=== PATIENT | female | born 1960 | race Caucasian/White ===

== ENCOUNTER 2016-07-29 07:02 | Day surgery (SDC) | payer OTHER ==
[~2016-07-29] VITALS: Ht 170.2 cm; Wt 123.7 kg
[2016-07-29 08:12] VITALS: Ht 170.2 cm; Wt 123.7 kg
[2016-07-29] MEDS ORDERED: LEVO100T87 PO (08:32)
[2016-07-29] MEDS ORDERED: OMEP20CA16 PO (08:32)
[2016-07-29] MEDS ORDERED: LOSA100T7 PO (08:32)
[2016-07-29] MEDS ORDERED: DULA1.5P SQ (08:32)
[2016-07-29] MEDS ORDERED: PROGLITAZONE (08:32)
[2016-07-29 08:55] VITALS: BP 143/83; PULSE 79; RESP 24
[2016-07-29] MEDS ORDERED: LIDOCAINE 2% (SDV) 5 ML INJ ONE (08:55)
[2016-07-29] MEDS ORDERED: PROPOFOL 60 ML ONE (08:55)
[2016-07-29 09:59] VITALS: BP 117/52; PULSE 76; RESP 22
[2016-07-29 10:03] VITALS: BP 150/80; RESP 22
[2016-07-29 10:45] VITALS: BP 149/84; RESP 20
--- NOTE | 2016-07-30 13:01 | GILP ---
DATE OF PROCEDURE: PROCEDURE: Esophagogastroduodenoscopy. PREOPERATIVE DIAGNOSIS: Patient presenting with history of abdominal discomfort, chronic heartburn, unresponsive to routine therapy, rule out Sheriff esophagus and eosinophilic esophagitis. POSTOPERATIVE DIAGNOSES: 1. Mild reflux esophagitis, [place] classification A. 2. Diffuse patchy gastritis. 3. Fundal gastric polyp. DESCRIPTION OF PROCEDURE: After the informed written consent was obtained, the patient was asked to lie on the left lateral side. Intravenous anesthesia was given by anesthesiologist, Dr. Calvillo. Whe n the patient became somnolent, the Olympus video upper endoscope was introduced into the oropharynx , and then into the esophagus. The esophagus was examined. A few areas of erythema noted just abov e the GE junction indicating mild reflux esophagitis, [place] classification A. Biopsies were o btained to rule out Sheriff's esophagus or eosinophilic esophagitis. Scope at this time was advance d into the stomach. A few areas of erythema were noted in the antrum and the fundus of the stomach. A 3 mm flat polyp was noted in the gastric fundus. This polyp was removed. Biopsy was done from the antrum, lesser curvature and the fundus to rule out H. pylori infection. The mucosa of the duod enum up to the end of the third portion appeared normal, and no additional abnormalities detected an d the procedure was terminated. PLAN: Recommend wait for the pathology report. Dictated By: RADHA CRISOSTOMO/MATTHEW Conf#: [id number] DID#: [id number]
--- NOTE | 2016-07-30 13:01 | GILP ---
DATE OF PROCEDURE: 07/29/2016 PROCEDURE: Colonoscopy. PREOPERATIVE DIAGNOSIS: Screening colonoscopy to rule out colon polyps. POSTOPERATIVE DIAGNOSES: 1. Diverticulosis all along the colon. 2. Minimal internal and moderate external hemorrhoids. 3. No polyps noted. 4. Terminal ileum appeared normal. DESCRIPTION OF PROCEDURE: After informed written consent was obtained, the patient was asked to lie on the left lateral side. Intravenous anesthesia was given by anesthesiologist, Dr. Calvillo. When th e patient became somnolent, the Olympus video colonoscope was introduced into the rectum and scope w as advanced all the way to the cecum. Entire colon was examined. Diffuse diverticulosis was noted t hat was small in size and of a moderate degree, but no evidence of diverticulitis. No evidence of a bleeding, no polyps were noted. Scope was advanced into the terminal ileum which appeared normal. On the way out, the further evaluation was carried out. No additional abnormalities detected. On retroflexion, minimal internal hemorrhoids were noted. When the scope was withdrawn moderate degree of external hemorrhoids were noted and the procedure was terminated. PLAN: Recommend repeat colonoscopy in 10 years. Dictated By: RADHA CRISOSTOMO/MATTHEW Conf#: [id number] DID#: [id number]
== END 2016-07-29 10:07 | disposition home or self-care (01) ==
LOC: GIL 07:02
PROVIDERS: ATTEND Internal Medicine Gastroenterology
DX: Z12.11 Encounter for screening for malignant neoplasm of colon (principal); K21.0 Gastro-esophageal reflux disease with esophagitis; K31.7 Polyp of stomach and duodenum; K64.8 Other hemorrhoids; K64.4 Residual hemorrhoidal skin tags; I10 Essential (primary) hypertension; E66.01 Morbid (severe) obesity due to excess calories; Z68.41 Body mass index [BMI] 40.0-44.9, adult
CPT/HCPCS: 43239; 45378; 82962; Z7610; 88305; 88312; 88313